=== PATIENT | male | born 1960 | race Caucasian/White ===

== ENCOUNTER → 2018-12-14 | Outpatient (CLI) | payer OTHER ==
--- NOTE | 2018-12-14 17:25 | PCVCIMAG ---
APPROVED REPORT Study performed: 12/14/2018 16:33:03 Exam: Stress Echocardiogram Indication: Hyperlipidemia, Hypertension, Irregular heart beat Patient Location: Echo lab Stress Nurse: Neeta Hope RN Status: routine Ht: 5 ft 10 in HR: 87 bpm BP: 110/80 mmHg Rhythm: NSR Medical History Medical History: HTN, Hyperlipidemia, Diabetes, Sleep apnea Procedure The patient underwent an Exercise Stress Test using the Pato Protocol. Blood pressure, heart rate, and EKG were monitored. An Echocardiogram was performed by ict support technicians in four stages in quad fashion. At peak stress, four selected images were obtained and placed side by side with resting images for comparison. Stress Test Details Stress Test: Exercise stress testing was performed using a Pato protocol. HR Resting HR: 87 bpmMax Heart Rate (APMHR): 164 bpm Max HR Achieved: 155 bpmTarget HR (85% APMHR): 139 bpm % of APMHR: 94 Recovery HR: 126 bpm HR response to stress: Normal HR response to stress BP Resting BP: 110/80 mmHg Max BP: 172/66 mmHg Recovery BP: 110/80 mmHg BP response to stress: Normal blood pressure response to stress. ECG Resting ECG: Sinus Rhythm, PVC Stress ECG: Sinurs rhythm ST Change: Normal Maximum ST Deviation: 0 mm Arrhythmia: APC, frequent and consecutive atrial ectopy Recovery ECG: Sinus Rhythm, PVC's Recovery ST Change: Normal Recovery ST Deviation: 0 mm Recovery Arrhythmia: PVC's, APC, frequent and consecutive atrial ectopy Clinical Reason for Termination: Maximal effort, Dyspnea Exercise duration: 7 min sec Highest Stage Achieved: Stage 3: 3.4 mph at 14% grade. Exercise capacity: 10.10 METs Overall Exercise Capacity for Age: Normal Angina Score: None Stress ECG Conclusion [place] Treadmill Score is 7.0 which is Low risk. Pre-Stress Echo The resting Echocardiogram showed normal left ventricular contractility with an estimated Ejection Fraction of about >55%. Post-Stress Echo The stress Echocardiogram showed normalabnormal left ventricular contractility with an estimated Ejection Fraction of about 50-55%. Frequent atrial premature complexes and salvos of atrial tachycardia limited post stress gating and imaging. Non-diagnostic echocardiographic findings post-exercise Conclusion Clinical Response: Non-ischemic Exercise Capacity: Average Stress ECG Response: Indeterminant Stress Echo Images: Indeterminant Non-diagnostic study due to technically difficult imaging. Frequent atrial premature complexes and salvos of atrial tachycardia limited post stress gating and imaging. Non-diagnostic echocardiographic findings post-exercise Recommend Lexiscan/nuclear stress testing Other Information Study Quality: Fair <Conclusion> Non-diagnostic study due to technically difficult imaging. Frequent atrial premature complexes and salvos of atrial tachycardia limited post stress gating and imaging. Non-diagnostic echocardiographic findings post-exercise Recommend Lexiscan/nuclear stress testing
== END | disposition home or self-care (01) ==
LOC: PCVCIMAG 16:03
PROVIDERS: ATTEND Internal Medicine
DX: I47.1 Supraventricular tachycardia (principal); I10 Essential (primary) hypertension; E78.5 Hyperlipidemia, unspecified
CPT/HCPCS: 93325; 93351